=== PATIENT | female | born 1980 | race Hispanic/Latino ===

== ENCOUNTER → 2016-12-08 | Emergency (ER) | payer OTHER ==
[~2016-12-08] VITALS: Ht 157.5 cm; Wt 90.7 kg
[2016-12-08 15:27] VITALS: BP 121/81
--- NOTE | 2016-12-08 15:50 | ER.PDOC ---
General Chief Complaint: Abdomen Pain Stated Complaint: LOWER BACK PAIN,ABDOMEN PAIN,DIZZY,NAUSEA,VOMITING Time seen by MD: 15:35 Source: patient Exam Limitations: no limitations History of Present Illness Initial Comments 36 year old LAF who gives a history of adrenal insuffciency with right lower back/flank and RLQ pain. Started three days ago and reminds herself of previous bouts with kidney stones four years ago. Feels sick to her stomach with diarrhea. History of adrenal insufficiency, cholecystectomy and appendectomy. Claims that she gets IV fluid every month or so. PMPA website review showed multiple narcotic prescriptions prescribed by different providers. Timing/Duration: other (three days) Severity/Quality: severe Radiation: RLQ Associated Symptoms: diarrhea Exacerbated by: movements Relieved By: nothing Allergies: Coded Allergies: acetaminophen (Verified Allergy, Intermediate, 12/08/16) hydromorphone (Verified Allergy, Intermediate, 12/08/16) ketorolac (Verified Allergy, Intermediate, 12/08/16) metoclopramide (Verified Allergy, Intermediate, 12/08/16) ondansetron (Verified Allergy, Intermediate, 12/08/16) prochlorperazine (Verified Allergy, Intermediate, 12/08/16) Vital Signs First Vital Signs Date Time Temp Pulse Resp B/P (MAP) Pulse Ox O2 Delivery O2 Flow Rate FiO2 12/08/16 15:24 97.7 125 20 98 12 15:27 121/81 (94) Last Vital Signs Date Time Temp Pulse Resp B/P (MAP) Pulse Ox O2 Delivery O2 Flow Rate FiO2 12/08/16 15:27 97.7 120 18 121/81 (94) 97 Past Medical History Medical History: no pertinent history, other (adrenal insufficiency) Surgical History: appendectomy, renal, other (reports that she does not have uterus/ovaries since ) LMP (females 10-50): 3 weeks Family History Significant Family History: no pertinent family hx Social History Smoking: non-smoker Alcohol Use: none Drug Use: none Constitutional: weakness EENTM: denies no symptoms reported, denies see HPI, denies eye pain, denies blurred vision, denies tearing, denies double vision, denies ear pain, denies ear discharge, denies nose pain, denies nose congestion, denies throat pain, denies throat swelling, denies mouth pain, denies mouth swelling, denies other Respiratory: denies no symptoms reported, denies see HPI, denies cough, denies orthopnea, denies shortness of breath, denies SOB with exertion, denies SOB at rest, denies stridor, denies wheezing, denies other Cardiovascular: denies no symptoms reported, denies see HPI, denies chest pain , denies edema, denies irregular heart rate, denies lightheadedness, denies palpitations, denies syncope, denies other Gastrointestinal: see HPI Genitourinary: other (history of kidney stones) Musculoskeletal: denies no symptoms reported, denies see HPI, denies back pain , denies gout, denies joint pain, denies joint swelling, denies muscle pain, denies muscle stiffness, denies neck pain, denies other Skin: denies no symptoms reported, denies see HPI, denies change in color, denies change in hair/nails, denies dryness, denies lesions, denies lumps, denies rash, denies other Psychiatric/Neurological: denies no symptoms reported, denies see HPI, denies anxiety, denies depressed, denies emotional problems, denies headache, denies numbness, denies paresthesia, denies pre-existing deficit, denies seizure, denies tingling, denies tremors, denies weakness, denies other Endocrine: see HPI Physical Exam General Appearance: No Apparent Distress, WD/WN HEENT: PERRL/EOMI, Normal ENT Inspection, TMs Normal, Pharynx Normal Neck: Non-Tender, Full Range of Motion, Supple, Normal Inspection Respiratory: chest non-tender, lungs clear, normal breath sounds, no respiratory distress, no accessory muscle use Cardiovascular: Normal Peripheral Pulses, Regular Rate, Rhythm, No Edema, No Gallop, No JVD, No Murmur Gastrointestinal: Normal Bowel Sounds, Soft, Tenderness (response to physical maneuver appears to be not consistent with physical findings) Back: CVA Tenderness (R) (response to physical maneuver appears not consistent with physical findings) Extremities: Normal Range of Motion, Non-Tender, Normal Inspection, No Pedal Edema, No Calf Tenderness, Normal Capillary Refill, Pelvis Stable 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 AMA. Departure Time of Disposition: 15:57 Disposition: 07 AGAINST MEDICAL ADVICE Impression: Primary Impression: Abdominal pain Condition: Stable Referrals: PCP,UNKNOWN (PCP) PRIMARY CARE PROVIDER Additional Instructions: RTER prn Problem Qualifiers Primary Impression: Abdominal pain Abdominal location: right lower quadrant Qualified Codes: R10.31 - Right lower quadrant pain WILDA RIOJAS MD Dec 08, 2016 15:50
== END ==
LOC: ER 15:08
DX: R10.31 Right lower quadrant pain (principal); R19.7 Diarrhea, unspecified; M54.5 Low back pain; Z88.6 Allergy status to analgesic agent; Z88.8 Allergy status to other drugs, medicaments and biological substances; Z87.442 Personal history of urinary calculi; Z49.02 Encounter for fitting and adjustment of peritoneal dialysis catheter; Z90.49 Acquired absence of other specified parts of digestive tract
CPT/HCPCS: 99281